=== PATIENT | male | born 1960 | race Caucasian/White ===

== ENCOUNTER 2019-09-27 13:31 | Emergency (ER) | payer MEDICARE, MEDICAID ==
[2019-09-27 14:11] LABS: BASOPHILS % (AUTO) 0.4 %; EOSINOPHILS # (AUTO) 0.1 10^3/uL (0.0-0.7); EOSINOPHILS % (AUTO) 1.6 %; HGB - HEMOGLOBIN 7.4 g/dL (14.0-18.0); LYMPHOCYTES # (AUTO) 0.3 10^3/uL (1.5-3.5); LYMPHOCYTES % (AUTO) 5.4 %; MEAN CORPUSCULAR VOLUME 75.7 fL (80.0-94.0); MEAN PLATELET VOLUME 8.8 fL (7.4-11.4); MONOCYTES # (AUTO) 0.6 10^3/uL (0.0-1.0); MONOCYTES % (AUTO) 12.2 %; NEUTROPHILS % (AUTO) 80.2 %; PLT - PLATELET COUNT 284 10^3/uL (130-450); RED BLOOD COUNT 3.37 10^6/uL (4.70-6.10); RED CELL DISTRIBUTION WIDTH 16.1 % (12.0-15.0)
[2019-09-27 14:29] LABS: ACETAMINOPHEN < 10 ug/mL (10-30); ALBUMIN 3.8 g/dL (3.2-5.5); ALKALINE PHOSPHATASE 70 IU/L (42-121); ALT ALANINE AMINOTRANSFERASE 13 IU/L (10-60); AST ASPARTATE AMINOTRANSFERASE 17 IU/L (10-42); BILIRUBIN,TOTAL 0.5 mg/dL (0.2-1.0); BUN - BLOOD UREA NITROGEN 24 mg/dL (6-20); CALCIUM 9.1 mg/dL (8.5-10.3); CARBON DIOXIDE - CO2 28 mmol/L (21-32); CHLORIDE 98 mmol/L (101-111); GFR - MDRD 76 (>89); GLUCOSE 100 mg/dL (70-100); LIPASE 67 U/L (22-51); SALICYLATE < 6.0 mg/dL; SODIUM 133 mmol/L (135-145); TOTAL PROTEIN 7.5 g/dL (6.7-8.2)
[2019-09-27 17:04] LABS: MUDS CUTOFF CONCENTRATIONS CUTOFF CONC BELOW:
[2019-09-27 17:05] LABS: BILIRUBIN,URINE NEGATIVE (NEGATIVE); GLUCOSE, URINE (UA) NEGATIVE (NEGATIVE); KETONES,URINE (UA) NEGATIVE (NEGATIVE); LEUKOCYTE ESTERASE, URINE NEGATIVE (NEGATIVE); NITRITE,URINE NEGATIVE (NEGATIVE); OCCULT BLOOD,URINE NEGATIVE (NEGATIVE); PH,URINE 5.5 PH (5.0-7.5); PROTEIN,URINE NEGATIVE (NEGATIVE); UROBILINOGEN,URINE 0.2 (NORMAL) E.U./dL (NORMAL)
[2019-09-27 17:06] LABS: CLARITY,URINE CLEAR (CLEAR)
[2019-09-27 17:16] LABS: AMPHETAMINE SCREEN,URINE NEGATIVE (NEGATIVE); BENZODIAZEPINES SCREEN, URINE NEGATIVE (NEGATIVE); COCAINE SCREEN URINE NEGATIVE (NEGATIVE); METHADONE SCREEN, URINE NEGATIVE (NEGATIVE); METHAMPHETAMINES SCREEN, URINE NEGATIVE (NEGATIVE); OPIATE SCREEN, URINE NEGATIVE (NEGATIVE); OXYCODONE SCREEN, URINE NEGATIVE (NEGATIVE); PROPOXYPHENE SCREEN, URINE NEGATIVE (NEGATIVE); TRICYCLIC ANTIDEPRESSANT,URINE NEGATIVE (NEGATIVE)
--- NOTE | 2019-09-27 18:02 | ED Physician Documentation ---
History of Present Illness - Stated complaint Stated Complaint: MHE - Chief complaint Chief Complaint: MHE - Additonal information Additional information: This is a 59-year-old male with a history of schizoaffective disorder as well as esophageal cancer status post chemotherapy and radiation, reportedly currently in remission who presents requesting inpatient hospitalization for increasing paranoia as well as increased hallucinations. Patient was previously living in [place] where he had many past hospitalizations and [place], he was diagnosed with cancer and underwent radiation and chemotherapy was briefly on palliative care, and then had significant improvement. He moved to [place] and he is currently living with his sister. He states that he physically is feeling well but over the last week he has had increased auditory hallucinations, these include voices telling him to look in certain directions, or telling him negative things such as that he has made mistakes in life. He denies any suicidal ideation or homicidal ideation. He has had some increased paranoia. His sister states that she has noticed the changes well and she thinks that he is increasingly difficult to take care of. He uses marijuana, otherwise denies drug use. Review of Systems Constitutional: denies: Fever Nose: denies: Rhinorrhea / runny nose Cardiac: denies: Chest pain / pressure Respiratory: denies: Dyspnea Neurologic: denies: Generalized weakness Psychiatric: reports: Hallucinations PD PAST MEDICAL HISTORY - Past Medical History Past Medical History: Yes GI: GERD, Hiatal hernia Psych: Depression, Anxiety Other Past Medical History: Poor historian - Past Surgical History Past Surgical History: Yes - Present Medications Home Medications: Ambulatory Orders Medication Instructions Recorded Confirmed Calcium Carbonate [Tums (Calcium 500 mg PO Q4-6H 09/27/19 09/27/19 Carbonate 500mg)] Omeprazole 20 mg PO DAILY 09/27/19 09/28/19 Paliperidone Palmitate [Invega 78 mg IM 09/27/19 Sustenna] Sertraline [Zoloft] 75 mg PO DAILY 09/27/19 09/28/19 - Allergies Allergies/Adverse Reactions: Allergies Allergy/AdvReac Type Severity Reaction Status Date / Time No Known Drug Allergies Allergy Verified 09/27/19 13:50 - Social History Does the pt smoke?: No Smoking Status: Former smoker Does the pt drink ETOH?: No Does the pt have substance abuse?: No Substance Use and Type: Marijuana - Immunizations Immunizations are current?: Yes - POLST Patient has POLST: No PD ED PE NORMAL - Vitals Vital signs reviewed: Yes - General General: No acute distress - HEENT HEENT: PERRL - Neck Neck: Supple, no meningeal sign - Cardiac Cardiac: RRR, No murmur - Respiratory Respiratory: Clear bilaterally - Abdomen Abdomen: Soft, Non tender, Non distended, Other (Past G-tube site present and there is a small reducible hernia which is mildly tender to palpation. Otherwise abdomen is nontender.) - Male Male : Other (Normal external genitalia without lesions) - Derm Derm: Warm and dry - Extremities Extremities: No deformity - Neuro Neuro: take down inspector 2-12 intact, No motor deficit, No sensory deficit, Normal speech - Psych Psych: Other (Alert, cooperative, has some drains content in his speech, such as telling me about how he exhaled radiation during his radiation treatment and he could feel the cancer burning up in next standing into the air. He was found by nurses to be smoking marijuana in his room) Results - Vitals Vitals: Oxygen O2 Source Room air - Labs Labs: Laboratory Tests 09/27/19 09/27/19 09/27/19 14:05 14:05 14:05 WBC 5.0 RBC 3.37 L Hgb 7.4 L Hct 25.5 L MCV 75.7 L MCH 22.0 L MCHC 29.0 L RDW 16.1 H Plt Count 284 MPV 8.8 Neut # (Auto) 4.0 Lymph # (Auto) 0.3 L [place] # (Auto) 0.6 Eos # (Auto) 0.1 Baso # (Auto) 0.0 Absolute Nucleated RBC 0.00 Nucleated RBC % 0.0 Sodium 133 L Potassium 3.6 Chloride 98 L Carbon Dioxide 28 Anion Gap 7.0 BUN 24 H Creatinine 1.0 Estimated GFR (MDRD) 76 L Glucose 100 Calcium 9.1 Total Bilirubin 0.5 AST 17 ALT 13 Alkaline Phosphatase 70 Total Protein 7.5 Albumin 3.8 Globulin 3.7 Albumin/Globulin Ratio 1.0 Lipase 67 H TSH 8.79 H Free T4 Urine Color Urine Clarity Urine pH Ur Specific [place] Urine Protein Urine Glucose (UA) Urine Ketones Urine Occult Blood Urine Nitrite Urine Bilirubin Urine Urobilinogen Ur Leukocyte Esterase Ur Microscopic Review Urine Culture Comments Salicylates < 6.0 Urine Opiates Screen Ur Oxycodone Screen Urine Methadone Screen Ur Propoxyphene Screen Acetaminophen < 10 L Ur Barbiturates Screen Ur Tricyclics Screen Ur Phencyclidine Scrn Ur Amphetamine Screen U Methamphetamines Scrn U Benzodiazepines Scrn Urine Cocaine Screen U Cannabinoids Screen Ethyl Alcohol < 5.0 09/27/19 09/27/19 14:05 17:00 WBC RBC Hgb Hct MCV MCH MCHC RDW Plt Count MPV Neut # (Auto) Lymph # (Auto) [place] # (Auto) Eos # (Auto) Baso # (Auto) Absolute Nucleated RBC Nucleated RBC % Sodium Potassium Chloride Carbon Dioxide Anion Gap BUN Creatinine Estimated GFR (MDRD) Glucose Calcium Total Bilirubin AST ALT Alkaline Phosphatase Total Protein Albumin Globulin Albumin/Globulin Ratio Lipase TSH Free T4 0.71 Urine Color YELLOW Urine Clarity CLEAR Urine pH 5.5 Ur Specific [place] <=1.005 Urine Protein NEGATIVE Urine Glucose (UA) NEGATIVE Urine Ketones NEGATIVE Urine Occult Blood NEGATIVE Urine Nitrite NEGATIVE Urine Bilirubin NEGATIVE Urine Urobilinogen 0.2 (NORMAL) Ur Leukocyte Esterase NEGATIVE Ur Microscopic Review NOT INDICATED Urine Culture Comments NOT INDICATED Salicylates Urine Opiates Screen NEGATIVE Ur Oxycodone Screen NEGATIVE Urine Methadone Screen NEGATIVE Ur Propoxyphene Screen NEGATIVE Acetaminophen Ur Barbiturates Screen NEGATIVE Ur Tricyclics Screen NEGATIVE Ur Phencyclidine Scrn NEGATIVE Ur Amphetamine Screen NEGATIVE U Methamphetamines Scrn NEGATIVE U Benzodiazepines Scrn NEGATIVE Urine Cocaine Screen NEGATIVE U Cannabinoids Screen POSITIVE H Ethyl Alcohol PD MEDICAL DECISION MAKING - ED course Complexity details: considered differential (Psychosis, schizoaffective disorder, electrolyte abnormality, thyroid disturbance, UTI, substance abuse) ED course: On examination patient is nontoxic-appearing, he does have some paranoid and somewhat delusional thought content, but he has no suicidal or homicidal ideation. His sister states that he is increasingly how to take care of and both he and his sister would like for him to be placed voluntarily for psychiatric admission. Sounds like his outpatient provider at [facility] was supportive of this as well. Labs were obtained, he does have an anemia, reviewing his records from [facility] from March of this year he typically does have an anemia with his hemoglobin in the eights. Records were reviewed from [facility], and 04/08/2019 he had a hemoglobin of 8.9, white blood cell count of 2.3, platelets of 211. He also has sodium 135 potassium 3.8, creatinine 0.85. He denies any chest pain or shortness of breath or generalized weakness, and he denies any blood in his stool or black/tarry stools today. Stool occult blood negative. His heart rate is normal and his blood pressure is slightly hypertensive, he appears well compensated with his anemia which appears chronic. I recommended continued outpatient follow up on these labs and his chronic medical issues. His urine is negative for infection, and his U tox is positive only for cannabinoids. Patient was found to be smoking marijuana in his room, This was confiscated. At this time patient appears medically clear, he is voluntary and we will try to arrange placement For psychiatric care. Social work was consulted. Patient was given his home medications. After boarding in our ED, he was accepted for placement at [facility]. He remains stable with no new complaints at the time of transport, hewas transported [facility]. Departure - Departure Disposition: 65 Psych Hosp/Unit DC/Xfer Clinical Impression: Schizophrenia Qualifiers: Schizophrenia type: unspecified Qualified Code(s): F20.9 - Schizophrenia, unspecified Condition: Good Discharge Date/Time: 09/29/19 20:03
[2019-09-27] MEDS ORDERED: CALCIUM CARBONATE CHEW 500 MG TABLET PO STA (20:35)
[2019-09-28] MEDS: CALCIUM CARBONATE CHEW 500 MG TABLET PO PRN ×5 (03:20→20:41)
[2019-09-28] MEDS ORDERED: POLYETHYLENE GLYCOL 3350 17 GM PACKET PO PRN (08:25)
--- NOTE | 2019-09-28 08:26 | ED Physician Documentation ---
ED Addendum - Addendum Addendum: 09/28/19 08:24 During signout and discussing the patient with his hemoglobin 7.4 my concern being that we will have a difficult time placing him for psychiatric admit with this significant anemia. He has had a 1.5 drop since March and his hemoglobin. I talked to the patient and he stated that doing a rectal examination for Hemoccult was fine. Hemoccult was negative so there is no evidence of GI bleeding but he was noted to be severely impacted with firm stool. He says is been 2 days since he had a bowel movement so he was offered dose of MiraLAX and he definitely wanted the MiraLAX stating that it has helped him in the past.
[2019-09-28] MEDS ORDERED: SERTRALINE 25 MG TABLET PO SCH (09:00)
[2019-09-28] MEDS ORDERED: PANTOPRAZOLE 40 MG TABLET PO STA (10:20)
[2019-09-29] MEDS ORDERED: PANTOPRAZOLE 40 MG TABLET PO STA (08:38)
[2019-09-29] MEDS: CALCIUM CARBONATE CHEW 500 MG TABLET PO PRN ×2 (08:43→14:17)
[2019-09-29] MEDS ORDERED: SERTRALINE 25 MG TABLET PO SCH (09:00)
[2019-09-29 19:24] VITALS: BP 119/81
== END 2019-09-29 20:03 ==
LOC: ED 13:31
DX: F25.9 Schizoaffective disorder, unspecified (principal); F22 Delusional disorders; D64.9 Anemia, unspecified; K56.41 Fecal impaction; K46.9 Unspecified abdominal hernia without obstruction or gangrene; F12.90 Cannabis use, unspecified, uncomplicated; I51.7 Cardiomegaly; Z85.01 Personal history of malignant neoplasm of esophagus; Z87.891 Personal history of nicotine dependence
CPT/HCPCS: 36415; 80053; 81003; 83690; 84439; 84443; 85025; 93005; 99284; 99285; A9270; 80306; 80307; 80320; 80329; 81001; 87086